=== PATIENT | male | born 1950 | race Caucasian/White ===

== ENCOUNTER → 2019-01-30 | Outpatient (CLI) | payer MEDICARE ==
--- NOTE | 2019-01-30 09:59 | XR ---
EXAMINATION TYPE: XR chest 2V DATE OF EXAM: 01/30/2019 COMPARISON: NONE HISTORY: Annual physical. COPD. TECHNIQUE: Frontal and lateral views of the chest are obtained. FINDINGS: There is no focal air space opacity, pleural effusion, or pneumothorax seen. There is diff use peribronchial cuffing and hyperinflation of the lungs. The cardiac silhouette size is upper limi ts of normal. Mild multilevel degenerative changes. The osseous structures are intact. IMPRESSION: No focal consolidation. Diffuse peribronchial cuffing may relate to reactive airway dise ase in this asymptomatic patient with underlying COPD.
== END | disposition home or self-care (01) ==
LOC: RADXRMAIN 09:30
PROVIDERS: ATTEND Family Medicine
DX: J98.09 Other diseases of bronchus, not elsewhere classified (principal); J44.9 Chronic obstructive pulmonary disease, unspecified
CPT/HCPCS: 71046

== ENCOUNTER → 2022-08-05 | Outpatient (CLI) | payer MEDICARE ==
--- NOTE | 2022-08-05 16:03 | CT ---
EXAMINATION TYPE: CT neck chest without con, CT sinus wo con DATE OF EXAM: 08/05/2022 COMPARISON: Chest x-ray January 30, 2019 HISTORY: pt states SOB x1 year. J44.0 R06.09 J98.4 R06.01 per order. Chronic sinusitis. CT DLP: 1584.90 (accession [id number]), 654.80 (accession [id number]) mGycm. Automated Exposure Control for Dose Reduction was Utilized. TECHNIQUE: CT scan of the neck, sinuses, and thorax are all performed without IV contrast. FINDINGS: Sinuses: The paranasal sinuses including the frontal, ethmoid, sphenoid, and maxillary sinuses bilaterally sh ow elongated 1.8 x 0.7 cm mucous retention cyst or polyp in the posterior left ethmoid sinus axial im age 29. Paranasal sinuses otherwise are clear The ostiomeatal complex is patent bilaterally on coron al image 22. Nasal septum is deviated to left of midline. Visualized portion of mastoid air cells show partial opacification on the left. The globes are intac t bilaterally. Visualized brain parenchyma unremarkable. IMPRESSION: No acute sinusitis. Possible left-sided mastoiditis, correlate clinically. Neck: Airway: No gross abnormality seen. Parotid/submandibular glands: No gross abnormality seen. Carotid/Vascular Structures: Moderate calcified plaque left greater than right carotid bulb level is present. Osseous Structures: Mild/moderate multilevel spurring in the lower cervical spine. Other: No abnormal greater than 1 cm neck adenopathy is seen. 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 Thorax: LUNGS: There is 9 x 7 mm inferior peripheral right upper lobe nodule axial image 34. Scattered small nodules and micronodularity in the upper lungs especially the apices all measuring under 5 mm. No ple ural effusion or pneumothorax seen bilaterally. No suspicious focal consolidation. MEDIASTINUM: Lack of IV contrast is noted to limit evaluation for mediastinal and especially hilar ad enopathy. There are no definitive greater than 1 cm mediastinal lymph nodes. No pericardial effusio n is seen. Cardiomegaly is present. There is severe three-vessel coronary artery calcification. Enlar ged pulmonary arteries consistent with underlying pulmonary artery hypertension noted. OTHER: There are several low dense intraluminal gallstones. There are a few tiny calcified gallstones . Diverticula in the transverse colon are present. Moderate to severe multilevel spurring in the spin e. IMPRESSION: Scattered tiny micronodules throughout the upper lungs raise concern for atypical infecti ous process. There is 9 x 7 mm peripheral right upper lobe nodule noted. Follow-up advised as per Fle [employer] Society recommendations. Cardiomegaly and underlying pulmonary artery hypertension noted.
== END | disposition home or self-care (01) ==
LOC: RADCTMAIN 14:48
PROVIDERS: ATTEND Family Medicine
DX: I25.10 Atherosclerotic heart disease of native coronary artery without angina pectoris (principal); K80.20 Calculus of gallbladder without cholecystitis without obstruction; K57.30 Diverticulosis of large intestine without perforation or abscess without bleeding; I27.21 Secondary pulmonary arterial hypertension; J44.0 Chronic obstructive pulmonary disease with (acute) lower respiratory infection; J98.4 Other disorders of lung; R06.01 Orthopnea; R06.09 Other forms of dyspnea; R91.8 Other nonspecific abnormal finding of lung field
CPT/HCPCS: 70486; 70490; 71250

== ENCOUNTER → 2022-12-14 | Outpatient (CLI) | payer MEDICARE ==
[2022-12-14 11:33] LABS: African American GFR (CKD) >90 (>60 ml/min/1.73 sqM); Blood Urea Nitrogen 18 mg/dL (9-20); Non-African American GFR(CKD) 88 (>60 ml/min/1.73 sqM)
--- NOTE | 2022-12-14 13:50 | CT ---
EXAMINATION TYPE: CT chest w con CT DLP: 678.30 mGycm, Automated exposure control for dose reduction was used. DATE OF EXAM: 12/14/2022 12:19 PM COMPARISON: None CLINICAL INDICATION:Male, 72 years old with history of R91.8 previous abnormal exam lung lai, prev ious abnormal lung lai TECHNIQUE: Multiple axial images were obtained through the chest. Sagittal and coronal reformats were created for review. Contrast used:100 mL of Isovue 300 with IV Contrast Oral contrast used: none. FINDINGS: LUNGS/ PLEURA: Scattered peripheral reticulation throughout the lungs. No focal consolidation, pneumo thorax or pleural effusion. Right minor fissure intrafissural lymph node series 3 image 34. AIRWAY: Patent and unremarkable. HEART: Size within normal limits. There is severe atherosclerosis of the arterial vasculature. Lipoma tous hypertrophy changes of the interatrial septum. MEDIASTINUM: No gross evidence of adenopathy. VASCULATURE: No aortic aneurysm. MUSCULOSKELETAL: Mild disc degeneration changes are present throughout the thoracolumbar spine. SOFT TISSUES/LYMPH NODES: Unremarkable. LOWER NECK: No significant findings. UPPER ABDOMEN: Right upper quadrant cholelithiasis present. Scattered hepatic lobe cysts. IMPRESSION: 1. No acute intrathoracic process. Mild bilateral peripheral reticulation could represent early nons pecific interstitial lung disease. 2. Cardiomegaly with moderate to severe coronary artery calcified effusions.
== END | disposition home or self-care (01) ==
LOC: RADCTMAIN 10:45
PROVIDERS: ATTEND Internal Medicine Critical Care Medicine
DX: I25.10 Atherosclerotic heart disease of native coronary artery without angina pectoris (principal); I51.7 Cardiomegaly; R91.8 Other nonspecific abnormal finding of lung field
CPT/HCPCS: 82565; 84520; 71260; 36415; Q9967

== ENCOUNTER → 2023-12-24 | Outpatient (CLI) | payer MEDICARE ==
--- NOTE | 2023-12-24 11:53 | CTL ---
EXAMINATION TYPE: CT Low Dose Lung DATE OF EXAM ORDERED: 12/24/2023 History: Lung cancer screening CT DLP: [address] CTDI: 4.3 mGy Automated exposure control for dose reduction was used. COMPARISON: 12/14/2022 TECHNIQUE: Low dose computed tomography scan was performed through the chest at 1 mm thick sections a nd reconstructed images in multiple planes at 1 mm and 5 mm thick sections. Examination Limited by motion artifact from breathing FINDINGS: There is a stable 5.2 mm nodule in the right upper lobe. There is a new vague 7.7 mm groundglass nodu le in the left upper lobe. There is no airspace consolidation or abnormal interstitial density. There is no pleural effusion, pleural thickening or pneumothorax.. The great vessels chest are normal there is no mediastinal, hilar or axillary adenopathy. Limited scanning through the upper abdomen reveals no gross abnormality. No focal osseous abnormalities identified. IMPRESSION: 1. Diagnostically limited scan due to breathing motion artifact. 2. New vague 7.7 mm nodule left upper lobe. Lung RADS category 3. Repeat CT thorax in 3 months to con firm stability. 3. No acute cardiopulmonary disease.
== END | disposition home or self-care (01) ==
LOC: RADCTMAIN 08:58
PROVIDERS: ATTEND Family Medicine
DX: Z12.2 Encounter for screening for malignant neoplasm of respiratory organs (principal); R91.1 Solitary pulmonary nodule; F17.210 Nicotine dependence, cigarettes, uncomplicated
CPT/HCPCS: 71271

== ENCOUNTER → 2024-07-01 | Outpatient (CLI) | payer MEDICARE ==
--- NOTE | 2024-07-01 23:35 | CTL ---
EXAMINATION TYPE: CT Low Dose Lung DATE OF EXAM ORDERED: 07/01/2024 COMPARISON: CT Low Dose Lung 12/24/2023, CT chest 12/14/2022, CT neck chest 08/05/2022 CLINICAL INDICATION: Male, 74 years old with history of R91.1 PULMONARY NODULE; [facility], Encounter for sc reening for malignant neoplasm and nicotine dependence, cigarettes, uncomplicated (current smoker), [facility] cancer screening, History of Smoking/tobacco use. TECHNIQUE: Low dose computed tomography scan was performed through the chest at 1 mm thick sections a nd reconstructed images in multiple planes at 1 mm and [address] DLP: 219.[address] CTDI: 5.4 mGy Automated exposure control for dose reduction was used. CT DIAGNOSTIC QUALITY: Satisfactory FINDINGS: Nodules: Stable scattered small nodules micronodule in the upper lungs most prominent at the lung apices measu ring all under 5 mm. Stable anterior left upper lobe 6 mm pulmonary nodule (series 205, image 54). Stable anterior right upper lobe 4 mm pulmonary nodule (series 205, image 69). Stable left upper lobe 4 mm pulmonary nodule abutting the left major fissure (series 205, image 53). Stable left upper lobe 5.4 mm pulmonary nodule abutting the left major fissure (series 205, image 51) . Stable peripheral right lower lobe 3.8 mm pulmonary nodule (series 205, image 98). LUNGS: COPD: Severity: None Fibrosis: Severity: Mild Lymph nodes: None Other findings: None RIGHT PLEURAL SPACE: Effusion: None Calcification: None Thickening: None Pneumothorax: None LEFT PLEURAL SPACE: Effusion: None Calcification: None Thickening: None Pneumothorax: None HEART: Heart Size: Normal Coronary Calcification: Moderate Pericardial Effusion: None OTHER FINDINGS: Upper abdomen: Low-density gallstones are demonstrated. Several stable hypodense foci within the live r are demonstrated which are too small to characterize but likely represent cysts. Bony thorax: [facility] of the thoracic spine. Supraclavicular region: None Other: None IMPRESSION: 1. Multiple small pulmonary nodules demonstrated. No definitive new or enlarging pulmonary nodules. 2. Cholelithiasis. CT LUNG RAD AND CT CHEST RECOMMENDATION: Lung-Rad 2 Benign Appearance or Behavior: Continue annual sc reening with LDCT in 12 months. S Modifier (other clinically significant findings): None [facility], , 07/01/2024 11:32 PM
== END | disposition home or self-care (01) ==
LOC: RADCTMAIN 08:14
PROVIDERS: ATTEND Family Medicine
DX: Z12.2 Encounter for screening for malignant neoplasm of respiratory organs (principal); R91.1 Solitary pulmonary nodule; R91.8 Other nonspecific abnormal finding of lung field; K80.20 Calculus of gallbladder without cholecystitis without obstruction; F17.210 Nicotine dependence, cigarettes, uncomplicated
CPT/HCPCS: 71271

== ENCOUNTER → 2024-12-07 | Outpatient (CLI) | payer MEDICARE ==
--- NOTE | 2024-12-07 13:16 | CA ---
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[place] CORONARY ART ICD-10 Codes: Patient History: HTN, DIABETIC, HYPERCHOLESTEROLEMIA, CURRENT SMOKER 1 PPD X 55 YEARS Medications: SEE LIST,,, Meds past 24 hrs: Pretest Chest Pain: STRESS TEST Lemuel Protocol Exercise Duration (min:sec): 02:[address] Depressions (mm): Angina Score: Thapa Score: Resting HR (bpm): 79 Peak HR (bpm): 108 Resting BP (mmHg): 134 / 67 Peak BP (mmHg): 134 / 67 MPHR: 146 Target HR: 124 % MPHR: 74 METS: 3.7 Total Dose: Peak Dose: Atropine: Double Product: 69114 BP Response: Stress Termination: KNEE PAIN/UNABLE TO CONTINUE Stress Symptoms: NO CARDIAC SYMPTOMS Stress Summary: ECG ANALYSIS Resting ECG: Normal sinus rhythm Stress ECG: No significant ST-T wave changes with exercise however patient was only able to achieve 74% of 850 maximum heart rate therefore the stress test is nondiagnostic CONCLUSIONS Nondiagnostic stress test because of inability to achieve 85% of maximum heart rate Poor exercise capacity only about 4 to walked for 2 minutes 53 seconds achieving 3.[address] Kyrie Mcgee (Electronically Signed) Final Date: 07 December 2024 13:15
== END | disposition home or self-care (01) ==
LOC: RADNMMAIN 08:48
PROVIDERS: ATTEND Family Medicine
DX: I25.10 Atherosclerotic heart disease of native coronary artery without angina pectoris (principal); I10 Essential (primary) hypertension; I51.7 Cardiomegaly; I50.32 Chronic diastolic (congestive) heart failure
CPT/HCPCS: 93017

== ENCOUNTER → 2024-12-20 | Outpatient (CLI) | payer MEDICARE ==
[~2024-12-20] MED LIST: REGADENOSON 0.4 MG/5 ML SYRINGE IV PRN
--- NOTE | 2024-12-20 11:46 | NM ---
EXAMINATION TYPE: NM stress lexiscan cardiolite DATE OF EXAM: 12/20/2024 COMPARISON: NONE CLINICAL INDICATION: Male, 74 years old with history of I51.7 CARDIOMEGALY I50.32 CHRONIC DIASTOLIC ( CONGE; TECHNIQUE: After the intravenous administration of 9.84 mCi Tc 99m Sestamibi - Cardiolite resting SP ECT images acquired 55 minutes post injection. The patient received 0.4mg Lexiscan, 26.6 mCi Tc 99m Sestamibi - Stress images obtained [address] injection FINDINGS: Review of stress and rest SPECT images demonstrates fixed perfusion defect involving the apex of the heart. The defect appears slightly larger on rest; some of this may relate to attenuation artifacts. No distinct reversibility is seen. Gated analysis suggests some possible dyskinesis on rest at the ap ex of the heart. Estimated left ventricular ejection fraction of 54 %. TID this calculated at 1.21, increased. IMPRESSION: 1. Correlate for old apical infarct. 2. While no discrete reversibility is seen, the transient ischemic dilatation ratio is increased. Thi s can be seen in the setting of multivessel, global inducible ischemia. Further EKG and clinical adam elation recommended. 3. Borderline diminished estimated LVEF at 54% [facility], , 12/20/2024 11:43 AM
--- NOTE | 2024-12-20 16:40 | CA ---
Lexiscan Nuclear Stress Test Report Name: Hernandez Holcomb Exam Date: 12/20/2024 09:19 Exam Location: [place] Stress Ht (in): 74 Wt (lb): 360 BSA: 2.79 Ordering Phys: Jayleen Ramos DO Referring Phys: Ada Jacome Technologist: ACE,, Age: 74 Gender: M : 1950 Procedure CPT: Indications: I51.7 CARDIOMEGALY I50.32 CHRONIC DIASTOLIC (CONGE ICD-10 Codes: Patient History: Hypertension, diabetes, hyperlipidemia and tobacco use. Medications: Meds past 24 hrs: Pretest Chest Pain: STRESS TEST Lexiscan Protocol Exercise Duration (min:sec): 01:[address] Depressions (mm): Angina Score: Thapa Score: Resting HR (bpm): 65 Peak HR (bpm): 76 Resting BP (mmHg): 133 / 60 Peak BP (mmHg): 118 / 69 MPHR: 146 Target HR: 124 % MPHR: 52 METS: 1.0 Total Dose: Peak Dose: Atropine: Double Product: 8968 BP Response: Stress Termination: INFUSION COMPLETE Stress Symptoms: NO SYMPTOMS Stress Summary: ECG ANALYSIS Resting ECG: Stress ECG: CONCLUSIONS At baseline EKG showed normal sinus rhythm, normal axis, no significant ST or T wave abnormalities with poor R wave progression. Patient recieved IV infusion of Lexiscan 0.4mg and at peak infusion EKG showed no significant change from baseline Conclusions: 1. Normal EKG response to Lexiscan infusion 2. Nuclear imaging to be reported separately. Dr. Adalberto Arguelles DO (Electronically Signed) Final Date: 20 December 2024 16:40
== END | disposition home or self-care (01) ==
LOC: RADNMMAIN 12-14 08:16
PROVIDERS: ATTEND Family Medicine
DX: Z53.9 Procedure and treatment not carried out, unspecified reason (principal)
CPT/HCPCS: 93017; 78452; A9500; J2785